=== PATIENT | female | born 1980 | race Caucasian/White ===

== ENCOUNTER 2020-09-13 16:40 | Emergency (ER) | payer BC ==
[2020-09-13 16:52] VITALS: RESP 18
[2020-09-13] MEDS ORDERED: SODIUM CHLORIDE 0.9% 1,000 ML IV STA (17:19)
[2020-09-13 17:28] LABS: Basophils # (A) 0.1 k/uL (0-0.2); Basophils % (A) 1 %; Eosinophils # (A) 0.1 k/uL (0-0.7); Eosinophils % (A) 2 %; HCT 45.3 % (34.0-46.0); HGB 15.6 gm/dL (11.4-16.0); Lymphocytes # (A) 1.8 k/uL (1.0-4.8); Lymphocytes % (A) 19 %; MCH 33.9 pg (25.0-35.0); MCHC 34.4 g/dL (31.0-37.0); MCV 98.3 fL (80.0-100.0); Mean Platelet Volume 6.9; Monocytes # (A) 0.6 k/uL (0-1.0); Monocytes % (A) 6 %; Neutrophils # (A) 6.8 k/uL (1.3-7.7); Neutrophils % (A) 72 %; Platelet Count 223 k/uL (150-450); RBC 4.61 m/uL (3.80-5.40); RDW 12.3 % (11.5-15.5); WBC 9.6 k/uL (3.8-10.6)
[2020-09-13] MEDS ORDERED: KETOROLAC 15 MG/ML 1 ML VIAL ONE (17:29)
[2020-09-13] MEDS ORDERED: KETOROLAC 15 MG/ML 1 ML VIAL IVP STA (17:29)
[2020-09-13 17:38] LABS: ALT 42 U/L (4-34); AST 48 U/L (14-36); African American GFR (CKD) >90 (>60 ml/min/1.73 sqM); Albumin 4.4 g/dL (3.5-5.0); Alkaline Phosphatase 83 U/L (38-126); Anion Gap 8 mmol/L; Blood Urea Nitrogen 12 mg/dL (7-17); Calcium 9.5 mg/dL (8.4-10.2); Carbon Dioxide 23 mmol/L (22-30); Chloride 106 mmol/L (98-107); Glucose 100 mg/dL (74-99); Magnesium 1.9 mg/dL (1.6-2.3); Non-African American GFR(CKD) >90 (>60 ml/min/1.73 sqM); Potassium 4.1 mmol/L (3.5-5.1); Sodium 137 mmol/L (137-145); Total Bilirubin 0.5 mg/dL (0.2-1.3); Total Protein 7.1 g/dL (6.3-8.2)
[2020-09-13 17:52] LABS: D-Dimer 0.2 mg/L FEU (<0.60); Partial Thromboplastin Time 27.2 sec (22.0-30.0); Prothrombin Time 10.3 sec (9.0-12.0)
--- NOTE | 2020-09-13 18:15 | XR ---
EXAMINATION TYPE: XR chest 2V DATE OF EXAM: 09/13/2020 COMPARISON: NONE HISTORY: Chest pain TECHNIQUE: 2 views FINDINGS: Heart is normal. Lungs are clear of consolidation. There are no hilar masses. There is no p leural effusion. There are chest leads. There is slight coarsening of interstitial markings. IMPRESSION: Mild pulmonary increased interstitial density. No pulmonary consolidation or heart failur e.
[2020-09-13] MEDS ORDERED: CYCLOBENZAPRINE 10MG STARTER 3 TAB BTL PO STA (18:34)
--- NOTE | 2020-09-13 18:55 | ED ---
Chest Pain HPI - General Chief Complaint: Chest Pain Stated Complaint: Chest pain Source: patient Mode of arrival: wheelchair Limitations: no limitations - History of Present Illness Initial Comments: Patient is a 40-year-old female has no history of fibromyalgia who presents to the emergency department with reported left-sided chest wall pain. 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 Left that she had a pulled muscle. States that she's been putting ice the site been taking anti-inflammatories at home. Reports that the pain has become more severe. She was attempting work yesterday when the pain was too intense. Reports that it is worse when she moves her left upper extremity and sits forward. Pain is better at rest. Denies any associated shortness of breath. No nausea, vomiting. No ripping or tearing sensation to her back. Patient is adopted and therefore does not know any of her family hi story. She denies history of DVT or PE. No lower extremity swelling. Denies any fevers or chills. No cough. No other alleviating, precipitating or modifying factors - Related Data Home Medications Medication Instructions Recorded Confirmed Acetaminophen [Tylenol] 1,000 mg PO Q4-6H PRN 09/13/20 09/13/20 Dextroamphetamine/Amphetamine 15 mg PO DAILY 09/13/20 09/13/20 [Dextroamp-Amphetamin 30 mg Tab] Ibuprofen [Motrin Ib] 600 mg PO Q8H PRN 09/13/20 09/13/20 Previous Rx's Medication Instructions Recorded Ketorolac [Toradol] 10 mg PO Q8HR #15 tab 09/13/20 Allergies Allergy/AdvReac Type Severity Reaction Status Date / Time adhesive Allergy Rash/Hives Verified 09/13/20 17:49 clarithromycin [From Biaxin] Allergy Rash/Hives Verified 09/13/20 17:49 latex Allergy Rash/Hives Verified 09/13/20 17:49 morphine Allergy Itching Verified 09/13/20 17:49 codeine AdvReac Vomiting Verified 09/13/20 17:49 fentanyl AdvReac Nausea & Verified 09/13/20 17:49 Vomiting hydromorphone HCl AdvReac Vomiting Verified 09/13/20 17:49 [From Dilaudid] Review of Systems ROS Statement: Those systems with pertinent positive or pertinent negative responses have been documented in the HPI. ROS Other: All systems not noted in ROS Statement are negative. EKG Findings - EKG Comments: EKG Findings:: EKG demonstrates a normal sinus rhythm with a ventricular rate of 100. HI interval is 180. QRS 88. QTC of 459. No acute ST segment elevations or depressions. Past Medical History Past Medical History: Fibromyalgia Additional Past Medical History / Comment(s): Anemia History of Any Multi-Drug Resistant Organisms: None Reported Additional Past Surgical History / Comment(s): tubal Past Psychological History: No Psychological Hx Reported Smoking Status: Current every day smoker Past Alcohol Use History: Occasional Past Drug Use History: None Reported General Exam Limitations: no limitations Course Vital Signs 09/13/20 09/13/20 09/13/20 16:45 18:10 19:09 Temperature 98.9 F 98.4 F Pulse Rate 108 H 87 80 Respiratory 18 18 18 Rate Blood Pressure 174/106 159/98 145/88 O2 Sat by Pulse 100 99 98 Oximetry Chest Pain MDM - [facility] Upon arrival patient is placed in room 9. A thorough history and physical exam was performed. 12 lead EKG was performed. IV is established. Laboratory studies were conducted and the patient went for chest x-ray. Her d-dimer is negative. Troponin is negative. Chest x-ray demonstrates mild pulmonary increased interstitial density. Results are discussed with the patient. She was given a dose of Toradol for which she states her pain is markedly improved. Patient will be given a 5 day course of Toradol. Instructed not to take it with any other NSAIDs. She is also requesting a muscle relaxer. Patient was given a Flexeril starter pack to go home. The place warm compresses to the site. Follow-up with primary care doctor in 2-4 days. Return to the emergency room for any new or worsening symptoms. Patient was in agreement with this and was discharged home in stable condition Disposition Clinical Impression: Chest wall pain Disposition: HOME SELF-CARE Condition: Stable Instructions (If sedation given, give patient instructions): Chest Wall Pain (ED) Additional Instructions: Follow-up with your doctor in 2-[address] warm compresses to the site. Do not take any additional NSAIDs. Return to the emergency room for any new or worsening symptoms Prescriptions: Ketorolac [Toradol] 10 mg PO Q8HR #15 tab Is patient prescribed a controlled substance at d/c from ED?: No Referrals: Shahzad Buitrago MD [Primary Care Provider] - 1-2 days Time of Disposition: 18:55
[2020-09-13 19:10] VITALS: BP 145/88; PULSE 80; TEMP 98.4
== END 2020-09-13 19:10 | disposition home or self-care (01) ==
LOC: EC 16:40
DX: R07.89 Other chest pain (principal); F17.200 Nicotine dependence, unspecified, uncomplicated; Z79.899 Other long term (current) drug therapy; Z91.048 Other nonmedicinal substance allergy status; Z88.1 Allergy status to other antibiotic agents; Z91.040 Latex allergy status; Z88.5 Allergy status to narcotic agent; Z88.8 Allergy status to other drugs, medicaments and biological substances
CPT/HCPCS: 36415; 93005; 85379; 80053; 83735; 84484; 85025; 85610; 85730; 71046; 99285; 96374; 96361; J1885

== ENCOUNTER 2023-05-15 09:47 | Inpatient (IN) | payer BC, OTHER ==
[2023-05-15] MEDS ORDERED: TRANEXAMIC 1,000 MG/100ML-NACL 1,000 MG in SALINE 1 100ML.BAG IV STA (09:51)
[2023-05-15] MEDS ORDERED: SODIUM CHLORIDE 0.9% 1,000 ML IV STA (09:51)
[2023-05-15] MEDS ORDERED: DIPH,PERTUS(ACELL)TETVAC-LF 0.5 ML VIAL IM ONE (09:52)
[2023-05-15] MEDS ORDERED: LORazepam 2 MG/ML INJ IV STA (09:56)
[2023-05-15 10:17] LABS: Basophils % (A) 0 %; Eosinophils # (A) 0.1 k/uL (0-0.7); Eosinophils % (A) 1 %; HCT 34.5 % (34.0-46.0); HGB 12.3 gm/dL (11.4-16.0); Lymphocytes # (A) 0.4 k/uL (1.0-4.8); Lymphocytes % (A) 5 %; MCH 33.3 pg (25.0-35.0); MCHC 35.6 g/dL (31.0-37.0); MCV 93.6 fL (80.0-100.0); Mean Platelet Volume 8.1; Monocytes # (A) 0.1 k/uL (0-1.0); Monocytes % (A) 1 %; Neutrophils # (A) 7.6 k/uL (1.3-7.7); Neutrophils % (A) 92 %; Platelet Count 159 k/uL (150-450); RBC 3.69 m/uL (3.80-5.40); RDW 12.5 % (11.5-15.5); WBC 8.2 k/uL (3.8-10.6)
[2023-05-15 10:24] LABS: INR 2.1 (<1.2); Partial Thromboplastin Time 27.2 sec (22.0-30.0); Prothrombin Time 20.2 sec (9.0-12.0)
[2023-05-15 10:29] LABS: African American GFR (CKD) >90 (>60 ml/min/1.73 sqM); Albumin 3.5 g/dL (3.5-5.0); Alcohol <10 mg/dL; Alkaline Phosphatase 101 U/L (38-126); Anion Gap 13 mmol/L; Blood Urea Nitrogen 9 mg/dL (7-17); Calcium 7.9 mg/dL (8.4-10.2); Carbon Dioxide 17 mmol/L (22-30); Chloride 90 mmol/L (98-107); Glucose 108 mg/dL (74-99); Non-African American GFR(CKD) >90 (>60 ml/min/1.73 sqM); Sodium 120 mmol/L (137-145); Total Bilirubin 5.3 mg/dL (0.2-1.3); Total Protein 5.6 g/dL (6.3-8.2)
[2023-05-15] MEDS ORDERED: ONDANSETRON 4 MG/2 ML VIAL IVP STA (10:37)
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
[2023-05-15 10:56] LABS: ALT 4426 U/L (4-34); AST 6195 U/L (14-36)
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
[2023-05-15] MEDS ORDERED: SODIUM CHLORIDE 0.9% 1,000 ML IV ONE ×3 (11:41→15:43)
--- NOTE | 2023-05-15 12:15 | P.PN ---
Progress Note - Text Progress Note Date: 05/15/23 Additional diagnostic studies completed. CTA negative for carotid injury or venous injury. Delay in surgical intervention as patient initially refused surgery. After further discussion, patient gave consent to proceed with surgery. Benefits and risks of neck exploration described. Likely injury is soft tissue/muscular. We'll control bleeding. Patient agreed to proceed.
[2023-05-15] MEDS ORDERED: DEXAMETHASONE SOD PHOSPHATE 4 MG/ML 1 ML VIAL IV ONE (12:21)
[2023-05-15] MEDS ORDERED: MIDAZOLAM 2 MG/2 ML VIAL ONE (12:36)
[2023-05-15] MEDS ORDERED: PROPOFOL 10 MG/ML 20 ML VIAL IV ONE (12:36)
[2023-05-15] MEDS ORDERED: KETOROLAC 30 MG/ML 1 ML VIAL ONE (12:36)
[2023-05-15] MEDS ORDERED: SUCCINYLCHOLINE CHLORIDE 200 MG/10 ML VIAL IV ONE (12:36)
[2023-05-15] MEDS ORDERED: PHENYLEPHRINE-0.9% NACL SYG 1,000 MCG/10 ML SYRINGE ONE (12:36)
[2023-05-15] MEDS ORDERED: SODIUM CHLORIDE 0.9% 50 ML with ceFAZolin 2,000 MG IV ONE ×2 (12:41)
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
[2023-05-15] MEDS ORDERED: BACITRACIN OINT 1 EACH PACKET TOPICAL ONE (13:35)
[2023-05-15] MEDS ORDERED: SODIUM CHLORIDE 0.9% 2,000 ML IV ONE ×2 (14:51→14:56)
[2023-05-15] MEDS ORDERED: NALOXONE 0.4 MG/ML 1 ML VIAL IV PRN (14:54)
[2023-05-15] MEDS ORDERED: HYDROmorphone 1 MG/ML 1 ML SYRINGE IVP PRN (14:55)
[2023-05-15] MEDS: SODIUM CHLORIDE 0.9% 1,000 ML IV SCH ×2 (16:02→21:50)
[2023-05-15 18:22] LABS: Amphetamine Screen,Urine Not Detected (NotDetected); Barbiturate Screen,Urine Not Detected (NotDetected); Benzodiazepines Screen,Urine Not Detected (NotDetected); Cocaine Screen,Urine Not Detected (NotDetected); Methadone Screen, Urine Not Detected (NotDetected); Opiate Screen,Urine Not Detected (NotDetected); Oxycodone Screen, Urine Not Detected (NotDetected); Phencyclidine Screen,Urine Not Detected (NotDetected); Tricyclic Antidepressant,Urine Not Detected (NotDetected); Urn Cannabinoid Scrn Not Detected (NotDetected)
[2023-05-15 18:29] LABS: Acetaminophen 22.4 ug/mL; Salicylate <1.0 mg/dL
--- NOTE | 2023-05-15 19:13 | P.PN ---
Progress Note - Text Progress Note Date: 05/15/23 Was called for evaluation and medical consult of patient. Reviewed chart and placed orders as patient appears to be an acute liver failure of unclear etiology. Upon going to bedside was notified that we will no longer be consulted for medical management of this patient as patient's primary doctor is Dr. Buitrago who will assume care of patient and complete medical consult. Will leave orders that I placed an process as these will benefit patient and discontinuation may cause further delay of patient's medical care. Further patient care and orders to be provided by Dr. Catalina Hammond, KURT rendered care for this patient independently, reviewed the findings and plan as documented in the note above. I did not physically speak with or examine the patient on this date.
[2023-05-15] MEDS: NICOTINE 21MG/24HR PATCH TRANSDERM SCH (21:49)
[2023-05-15 23:44] LABS: Albumin 2.6 g/dL (3.5-5.0); Albumin/Globulin Ratio 1.4; Globulin 1.9 g/dL; Total Bilirubin 4.2 mg/dL (0.2-1.3); Total Protein 4.5 g/dL (6.3-8.2)
[2023-05-15] MEDS: ALPRAZolam 0.5 MG TAB PO PRN (23:56)
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
[2023-05-16] MEDS: SODIUM CHLORIDE 0.9% 1,000 ML IV SCH ×3 (07:42→18:08)
[2023-05-16] MEDS: ENOXAPARIN 30 MG/0.3 ML SYRINGE SQ SCH (08:26)
[2023-05-16] MEDS: NICOTINE 21MG/24HR PATCH TRANSDERM SCH (08:27)
[2023-05-16] MEDS: MONTELUKAST 10 MG TAB PO SCH (08:27)
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
[2023-05-16] MEDS: SYMBICORT 160-4.5 MCG INHALER INHALATION SCH ×2 (08:28→20:00)
[2023-05-16 08:35] LABS: Hepatitis A Antibody IgM Non-Reactive (Non-Reactive); Hepatitis B Core IgM Non-Reactive (Non-Reactive); Hepatitis B Surface Antigen Non-Reactive (Non-Reactive); Hepatitis C IgG Antibody Non-Reactive (Non-Reactive)
[2023-05-16] MEDS ORDERED: diphenhydrAMINE 25 MG CAP PO PRN (09:23)
[2023-05-16 10:13] LABS: Basophils % (A) 0 %; Eosinophils % (A) 0 %; HCT 28.1 % (34.0-46.0); Lymphocytes # (A) 0.3 k/uL (1.0-4.8); Lymphocytes % (A) 3 %; MCH 33.9 pg (25.0-35.0); MCHC 35.3 g/dL (31.0-37.0); MCV 95.8 fL (80.0-100.0); Mean Platelet Volume 8.2; Monocytes # (A) 0.1 k/uL (0-1.0); Monocytes % (A) 2 %; Neutrophils # (A) 8.9 k/uL (1.3-7.7); Neutrophils % (A) 95 %; Platelet Count 168 k/uL (150-450); RBC 2.94 m/uL (3.80-5.40); RDW 12.8 % (11.5-15.5); WBC 9.4 k/uL (3.8-10.6)
[2023-05-16 10:14] LABS: African American GFR (CKD) >90 (>60 ml/min/1.73 sqM); Albumin 2.6 g/dL (3.5-5.0); Albumin/Globulin Ratio 1.2; Alkaline Phosphatase 119 U/L (38-126); Anion Gap 5 mmol/L; Blood Urea Nitrogen <2 mg/dL (7-17); Calcium 7.8 mg/dL (8.4-10.2); Carbon Dioxide 20 mmol/L (22-30); Chloride 107 mmol/L (98-107); Globulin 2.2 g/dL; Glucose 157 mg/dL (74-99); Non-African American GFR(CKD) >90 (>60 ml/min/1.73 sqM); Potassium 3.9 mmol/L (3.5-5.1); Sodium 132 mmol/L (137-145); Total Bilirubin 3.5 mg/dL (0.2-1.3); Total Protein 4.8 g/dL (6.3-8.2)
[2023-05-16 10:15] LABS: HGB 9.9 gm/dL (11.4-16.0)
[2023-05-16 10:53] LABS: ALT 4558 U/L (4-34); AST 5294 U/L (14-36)
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
[2023-05-16] MEDS ORDERED: ACETYLCYSTEINE 6,000 MG/30 ML VIAL PO ONE (15:00)
[2023-05-16] MEDS: BACITRACIN ZINC 500 UNIT/GM OINT 28.4 GM TUBE TOPICAL SCH ×2 (15:34→22:08)
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
[2023-05-16 15:47] LABS: INR 1.6 (<1.2); Prothrombin Time 15.9 sec (9.0-12.0)
[2023-05-16] MEDS: ACETYLCYSTEINE 6,000 MG/30 ML VIAL PO SCH ×2 (18:09→22:08)
[2023-05-17] MEDS: SODIUM CHLORIDE 0.9% 1,000 ML IV SCH ×4 (00:03→21:38)
[2023-05-17] MEDS: ALPRAZolam 0.5 MG TAB PO PRN ×2 (00:04→21:38)
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
[2023-05-17] MEDS: ACETYLCYSTEINE 6,000 MG/30 ML VIAL PO SCH ×5 (02:25→18:06)
--- NOTE | 2023-05-17 06:35 | P.PN ---
Subjective Progress Note Date: 05/15/23 Additional history obtained with food poisoning for 4 days not eating. Had moderate jaundice now improving. Patient reports overdosing on tylenol taking more than recommended amount due to food poisoning. Continued hospitalization for liver toxicity, IV fluid hydration advised. Neck dressing attached with tegaderm. Objective - Vital Signs Vital signs: Vital Signs Temp 98.3 F 05/15/23 19:28 Pulse 110 H 05/15/23 19:28 Resp 19 05/15/23 19:28 BP 122/79 05/15/23 19:28 Pulse Ox 100 05/15/23 19:28 FiO2 Intake & Output 05/15/23 05/15/23 05/16/23 06:59 18:59 06:59 Intake Total 6397 Output Total 10 Balance 6387 Weight 68.039 kg Intake: IV 2100 Intake, IV Titration 4297 Amount Sodium Chloride 0.9% 1, 1200 000 ml @ 150 mls/hr IV . Q6H40M [facility] Rx#:[id number] Sodium Chloride 0.9% 1, 999 000 ml @ 999 mls/hr IV . Q1H1M STA Rx#:[id number] Sodium Chloride 0.9% 2, 999 000 ml @ 999 mls/hr IV . Q2H1M ONE Rx#:[id number] Sodium Chloride 0.9% 2, 999 000 ml @ 999 mls/hr IV . Q2H1M ONE Rx#:[id number] Sodium Chloride 0.9% 50 50 ml @ 0 mls/hr IV .STK-MED ONE with ceFAZolin 2,000 mg Rx#:[id number] ceFAZolin 2 gm In Sodium 50 Chloride 0.9% 50 ml @ 100 mls/hr IVPB ONCE ONE Rx# :[id number] Output: Estimated Blood Loss 10 Other: Voiding Method Toilet - Labs CBC & Chem 7: 05/15/23 10:06 05/15/23 10:06 Labs: Abnormal Lab Results - Last 24 Hours (Table) 05/15/23 05/15/23 05/15/23 Range/Units 10:06 10:06 10:06 RBC 3.69 L (3.80-5.40) m/uL Lymphocytes # 0.4 L (1.0-4.8) k/uL PT 20.2 H (9.0-12.0) sec INR 2.1 H (<1.2) Sodium (137-145) mmol/L Chloride (98-107) mmol/L Carbon Dioxide (22-30) mmol/L Glucose (74-99) mg/dL Calcium (8.4-10.2) mg/dL Total Bilirubin (0.2-1.3) mg/dL AST (14-36) U/L ALT (4-34) U/L Creatine Kinase (30-135) U/L Total Protein (6.3-8.2) g/dL Crossmatch See Detail 05/15/23 05/15/23 Range/Units 10:06 11:00 RBC (3.80-5.40) m/uL Lymphocytes # (1.0-4.8) k/uL PT (9.0-12.0) sec INR (<1.2) Sodium 120 L (137-145) mmol/L Chloride 90 L (98-107) mmol/L Carbon Dioxide 17 L (22-30) mmol/L Glucose 108 H (74-99) mg/dL Calcium 7.9 L (8.4-10.2) mg/dL Total Bilirubin 5.3 H (0.2-1.3) mg/dL AST 6195 H (14-36) U/L ALT 4426 H (4-34) U/L Creatine Kinase 275 H (30-135) U/L Total Protein 5.6 L (6.3-8.2) g/dL Crossmatch
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
[2023-05-17] MEDS: MONTELUKAST 10 MG TAB PO SCH (08:29)
[2023-05-17] MEDS: NICOTINE 21MG/24HR PATCH TRANSDERM SCH (08:29)
[2023-05-17] MEDS: BACITRACIN ZINC 500 UNIT/GM OINT 28.4 GM TUBE TOPICAL SCH ×2 (08:29→21:38)
[2023-05-17] MEDS: ENOXAPARIN 30 MG/0.3 ML SYRINGE SQ SCH (08:29)
[2023-05-17 09:00] LABS: HCT 25.2 % (34.0-46.0); HGB 8.9 gm/dL (11.4-16.0); MCH 34.1 pg (25.0-35.0); MCHC 35.3 g/dL (31.0-37.0); MCV 96.5 fL (80.0-100.0); Mean Platelet Volume 7.9; Platelet Count 210 k/uL (150-450); RBC 2.61 m/uL (3.80-5.40)
[2023-05-17] MEDS: SYMBICORT 160-4.5 MCG INHALER INHALATION SCH ×2 (09:25→21:05)
[2023-05-17 09:26] LABS: African American GFR (CKD) >90 (>60 ml/min/1.73 sqM); Albumin 2.8 g/dL (3.5-5.0); Albumin/Globulin Ratio 1.3; Alkaline Phosphatase 117 U/L (38-126); Anion Gap 9 mmol/L; Blood Urea Nitrogen <2 mg/dL (7-17); Calcium 7.7 mg/dL (8.4-10.2); Carbon Dioxide 16 mmol/L (22-30); Chloride 109 mmol/L (98-107); Globulin 2.1 g/dL; Glucose 152 mg/dL (74-99); Non-African American GFR(CKD) >90 (>60 ml/min/1.73 sqM); Potassium 3.5 mmol/L (3.5-5.1); Sodium 134 mmol/L (137-145); Total Bilirubin 2.9 mg/dL (0.2-1.3); Total Protein 4.9 g/dL (6.3-8.2)
[2023-05-17 09:56] LABS: AST 1344 U/L (14-36)
[2023-05-17 11:04] LABS: ALT 2862 U/L (4-34)
[2023-05-17] MEDS ORDERED: hydrOXYzine pamoate 25 MG CAP PO PRN (13:50)
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
[2023-05-17 15:09] LABS: Acetaminophen <10.0 ug/mL; African American GFR (CKD) >90 (>60 ml/min/1.73 sqM); Albumin/Globulin Ratio 1.3; Blood Urea Nitrogen <2 mg/dL (7-17); Globulin 2.3 g/dL; Non-African American GFR(CKD) >90 (>60 ml/min/1.73 sqM); Sodium 137 mmol/L (137-145); Total Protein 5.3 g/dL (6.3-8.2)
[2023-05-17 15:13] LABS: INR 1.3 (<1.2); Prothrombin Time 13.3 sec (9.0-12.0)
--- NOTE | 2023-05-17 15:31 | P.PN ---
Subjective Progress Note Date: 05/17/23 CHIEF COMPLAINT: Neck laceration HISTORY OF PRESENT ILLNESS: Patient is postop day #2 status post closure of anterior neck laceration 8 cm, closure of right neck laceration 5 cm, closure of right forearm medial laceration 10 cm, repair of right wrist laceration and repair of left lateral forearm laceration. Patient reports her pain is controlled. She does note there is a slight opening in the incision at the neck. No drainage. Pain is controlled. Afebrile. WBC is 6 Hgb is 8.9 INR is 1.3 total bilirubin is down from 3.5-2.9 LFTs are trending down Tylenol level is less than 10 PHYSICAL EXAM: VITAL SIGNS: Reviewed GENERAL: Well-developed in no acute distress. HEENT: sclera icterus noted. Extraocular movements grossly intact. Moist buccal mucosa. Head is facial bruising. normocephalic. Hears conversational speech. No nasal drainage. NECK: Neck incisions clean dry and intact. The anterior incision there is a slight opening. No drainage noted. CHEST: Non-labored respirations and equal bilateral excursions. CARDIOVASCULAR: Palpable 2+ radial pulses. ABDOMEN: Soft. Nondistended. Nontender. MUSCULOSKELETAL: No clubbing or cyanosis. NEUROLOGIC: No focal or lateralizing signs. Cranial nerves II through XII grossly intact. PSYCH: Appropriate affect. Alert and oriented to person, place and time. SKIN: Multiple areas of bruising face and arms Extremities lacerations on both extremities are clean dry and intact ASSESSMENT: 1. Hemorrhagic right neck laceration, 5-cm 2. Anterior neck laceration, 8-cm 3. Right lateral forearm laceration, multiple 4. Left medial forearm laceration, subcutaneous multiple 5. Left anterior and posterior lacerations 6. Left wrist laceration, 6-cm, subfascia 7. Elevated liver enzymes possibly related to acetaminophen overdose and shocked liver 8. Acute blood loss anemia PLAN: -Clean incisions with antibacterial soap and hydrogen peroxide twice a day. Then apply bacitracin ointment and cover -Okay to shower -Continue monitor LFTs -Continue pain management -Medicine service did add Mucomyst of acetaminophen overdose. Poison control has been notified. -Continue IV fluids -Lovenox DVT prophylaxis Physician Payroll Representative note has been reviewed by physician. Signing provider agrees with the documented findings, assessment, and plan of care. Objective - Vital Signs Vital signs: Vital Signs Temp 97.9 F 05/17/23 07:05 Pulse 89 05/17/23 07:05 Resp 16 05/17/23 07:05 BP 128/68 05/17/23 07:05 Pulse Ox 97 05/17/23 07:05 FiO2 Intake & Output 05/16/23 05/17/23 05/17/23 18:59 06:59 18:59 Intake Total 1200 Output Total 200 Balance 1000 Intake: Intake, IV Titration 1200 Amount Sodium Chloride 0.9% 1, 1200 000 ml @ 150 mls/hr IV . Q6H40M [facility] Rx#:[id number] Output: Urine 200 Other: # Voids 3 # Bowel Movements 2 - Labs CBC & Chem 7: 05/17/23 08:36 05/17/23 08:36 Labs: Abnormal Lab Results - Last 24 Hours (Table) 05/16/23 05/17/23 05/17/23 Range/Units 15:18 08:36 08:36 RBC 2.61 L (3.80-5.40) m/uL Hgb 8.9 L (11.4-16.0) gm/dL Hct 25.2 L (34.0-46.0) % PT 15.9 H (9.0-12.0) sec INR 1.6 H (<1.2) Sodium 134 L (137-145) mmol/L Chloride 109 H (98-107) mmol/L Carbon Dioxide 16 L (22-30) mmol/L BUN <2 L (7-17) mg/dL Creatinine 0.39 L (0.52-1.04) mg/dL Glucose 152 H (74-99) mg/dL Calcium 7.7 L (8.4-10.2) mg/dL Total Bilirubin 2.9 H (0.2-1.3) mg/dL AST 1344 H (14-36) U/L ALT 2862 H (4-34) U/L Total Protein 4.9 L (6.3-8.2) g/dL Albumin 2.8 L (3.5-5.0) g/dL
[2023-05-17 15:46] LABS: Alkaline Phosphatase 159 U/L (38-126); Anion Gap 11 mmol/L; Calcium 8.1 mg/dL (8.4-10.2); Carbon Dioxide 16 mmol/L (22-30); Chloride 110 mmol/L (98-107); Glucose 163 mg/dL (74-99); Total Bilirubin 2.7 mg/dL (0.2-1.3)
[2023-05-17 15:58] LABS: AST 1053 U/L (14-36)
[2023-05-17 17:37] LABS: ALT 2658 U/L (4-34)
[2023-05-17] MEDS ORDERED: LOPERAMIDE 2 MG CAP PO PRN (20:27)
[2023-05-17] MEDS: traZODone HCL 50 MG TAB PO SCH (21:38)
[2023-05-17] MEDS: SODIUM BICARBONATE TAB 650 MG TAB PO SCH (21:38)
[2023-05-18] MEDS: SODIUM CHLORIDE 0.9% 1,000 ML IV SCH ×4 (03:29→23:19)
[2023-05-18 08:26] LABS: Basophils % (A) 0 %; Eosinophils # (A) 0.2 k/uL (0-0.7); Eosinophils % (A) 4 %; HCT 24.9 % (34.0-46.0); HGB 8.5 gm/dL (11.4-16.0); Lymphocytes # (A) 1.3 k/uL (1.0-4.8); Lymphocytes % (A) 24 %; MCH 33.3 pg (25.0-35.0); MCHC 34.2 g/dL (31.0-37.0); MCV 97.5 fL (80.0-100.0); Mean Platelet Volume 8.2; Monocytes # (A) 0.3 k/uL (0-1.0); Monocytes % (A) 7 %; Neutrophils # (A) 3.3 k/uL (1.3-7.7); Neutrophils % (A) 63 %; Platelet Count 245 k/uL (150-450); RBC 2.55 m/uL (3.80-5.40); RDW 13.4 % (11.5-15.5); WBC 5.2 k/uL (3.8-10.6)
[2023-05-18] MEDS: ENOXAPARIN 30 MG/0.3 ML SYRINGE SQ SCH (08:35)
[2023-05-18] MEDS: MONTELUKAST 10 MG TAB PO SCH (08:35)
[2023-05-18] MEDS: NICOTINE 21MG/24HR PATCH TRANSDERM SCH (08:35)
[2023-05-18] MEDS: SODIUM BICARBONATE TAB 650 MG TAB PO SCH ×2 (08:35→21:15)
[2023-05-18] MEDS: BACITRACIN ZINC 500 UNIT/GM OINT 28.4 GM TUBE TOPICAL SCH ×2 (08:39→21:17)
[2023-05-18 08:45] LABS: AST 474 U/L (14-36); African American GFR (CKD) >90 (>60 ml/min/1.73 sqM); Albumin 2.5 g/dL (3.5-5.0); Albumin/Globulin Ratio 1.2; Alkaline Phosphatase 159 U/L (38-126); Anion Gap 7 mmol/L; Blood Urea Nitrogen <2 mg/dL (7-17); Calcium 7.5 mg/dL (8.4-10.2); Carbon Dioxide 18 mmol/L (22-30); Chloride 112 mmol/L (98-107); Globulin 2.1 g/dL; Glucose 68 mg/dL (74-99); Non-African American GFR(CKD) >90 (>60 ml/min/1.73 sqM); Potassium 3.6 mmol/L (3.5-5.1); Sodium 137 mmol/L (137-145); Total Bilirubin 1.6 mg/dL (0.2-1.3); Total Protein 4.6 g/dL (6.3-8.2)
[2023-05-18 09:07] LABS: ALT 1770 U/L (4-34)
[2023-05-18] MEDS: SYMBICORT 160-4.5 MCG INHALER INHALATION SCH ×2 (09:53→20:51)
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
[2023-05-18] MEDS: traZODone HCL 50 MG TAB PO SCH (21:15)
[2023-05-18] MEDS: ALPRAZolam 0.5 MG TAB PO PRN (21:15)
[2023-05-19] MEDS: SODIUM CHLORIDE 0.9% 1,000 ML IV SCH ×3 (05:55→17:05)
[2023-05-19 07:03] LABS: Basophils % (A) 0 %; Eosinophils # (A) 0.4 k/uL (0-0.7); Eosinophils % (A) 5 %; HCT 28.7 % (34.0-46.0); HGB 9.8 gm/dL (11.4-16.0); Lymphocytes # (A) 2.1 k/uL (1.0-4.8); Lymphocytes % (A) 28 %; MCH 33.8 pg (25.0-35.0); MCHC 34.1 g/dL (31.0-37.0); MCV 98.9 fL (80.0-100.0); Macrocytosis Slight; Mean Platelet Volume 7.3; Monocytes # (A) 0.5 k/uL (0-1.0); Monocytes % (A) 7 %; Neutrophils # (A) 4.6 k/uL (1.3-7.7); Neutrophils % (A) 59 %; Platelet Count 304 k/uL (150-450); RBC 2.91 m/uL (3.80-5.40); RDW 14.8 % (11.5-15.5); WBC 7.8 k/uL (3.8-10.6)
[2023-05-19 07:17] LABS: AST 256 U/L (14-36); African American GFR (CKD) >90 (>60 ml/min/1.73 sqM); Albumin 3.2 g/dL (3.5-5.0); Albumin/Globulin Ratio 1.3; Alkaline Phosphatase 185 U/L (38-126); Anion Gap 5 mmol/L; Blood Urea Nitrogen <2 mg/dL (7-17); Calcium 7.9 mg/dL (8.4-10.2); Carbon Dioxide 23 mmol/L (22-30); Chloride 110 mmol/L (98-107); Globulin 2.4 g/dL; Glucose 82 mg/dL (74-99); Non-African American GFR(CKD) >90 (>60 ml/min/1.73 sqM); Potassium 3.5 mmol/L (3.5-5.1); Sodium 138 mmol/L (137-145); Total Bilirubin 1.6 mg/dL (0.2-1.3); Total Protein 5.6 g/dL (6.3-8.2)
[2023-05-19 07:34] LABS: ALT 1491 U/L (4-34)
[2023-05-19] MEDS: SODIUM BICARBONATE TAB 650 MG TAB PO SCH ×2 (07:48→21:19)
[2023-05-19] MEDS: MONTELUKAST 10 MG TAB PO SCH (07:48)
[2023-05-19] MEDS: ENOXAPARIN 30 MG/0.3 ML SYRINGE SQ SCH (07:49)
[2023-05-19] MEDS: BACITRACIN ZINC 500 UNIT/GM OINT 28.4 GM TUBE TOPICAL SCH ×2 (07:49→21:21)
[2023-05-19] MEDS: NICOTINE 21MG/24HR PATCH TRANSDERM SCH (07:49)
[2023-05-19] MEDS: SYMBICORT 160-4.5 MCG INHALER INHALATION SCH ×2 (09:21→20:28)
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
[2023-05-19] MEDS ORDERED: hydrALAZINE HCL 20 MG/ML 1 ML VIAL IVP PRN (13:07)
[2023-05-19] MEDS: LOSARTAN-HCTZ 50-12.5 MG 1 EACH TAB PO SCH (14:12)
[2023-05-19] MEDS: ESCITALOPRAM 20 MG TAB PO SCH (17:04)
[2023-05-19] MEDS: ALPRAZolam 0.5 MG TAB PO PRN (21:19)
[2023-05-19] MEDS: traZODone HCL 50 MG TAB PO SCH (21:21)
[2023-05-20] MEDS: SODIUM CHLORIDE 0.9% 1,000 ML IV SCH ×3 (04:36→11:09)
[2023-05-20] MEDS: ESCITALOPRAM 20 MG TAB PO SCH (07:49)
[2023-05-20] MEDS: SODIUM BICARBONATE TAB 650 MG TAB PO SCH (07:50)
[2023-05-20] MEDS: NICOTINE 21MG/24HR PATCH TRANSDERM SCH (07:50)
[2023-05-20] MEDS: LOSARTAN-HCTZ 50-12.5 MG 1 EACH TAB PO SCH (07:50)
[2023-05-20] MEDS: MONTELUKAST 10 MG TAB PO SCH (07:50)
[2023-05-20] MEDS: ENOXAPARIN 30 MG/0.3 ML SYRINGE SQ SCH (07:50)
[2023-05-20] MEDS: BACITRACIN ZINC 500 UNIT/GM OINT 28.4 GM TUBE TOPICAL SCH (07:54)
[2023-05-20] MEDS: SYMBICORT 160-4.5 MCG INHALER INHALATION SCH (08:13)
[2023-05-20 11:25] LABS: ALT 1055 U/L (8-44); AST 109 U/L (13-35); Albumin 3.6 d/dL (3.8-4.9); Albumin/Globulin Ratio 2.12 Ratio (1.60-3.17); Alkaline Phosphatase 195 U/L (41-126); Blood Urea Nitrogen 5.6 mg/dL (9.0-27.0); Calcium 8.8 mg/dL (8.7-10.3); Carbon Dioxide 23.9 mmol/L (21.6-31.8); Chloride 105 mmol/L (96-109); Globulin 1.7 d/dL (1.6-3.3); Glucose 75 mg/dL (70-110); Sodium 139 mmol/L (135-145); Total Bilirubin 1.3 mg/dL (0.3-1.2); Total Protein 5.3 d/dL (6.2-8.2)
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
[2023-05-20 14:49] VITALS: BP 137/88; PULSE 86; RESP 17; TEMP 98.5
--- NOTE | 2023-05-22 15:27 | PN ---
PROGRESS NOTE SUBJECTIVE: This is a 43-year-old white female, getting better by the day. She is not suicidal. Pulse is 96, temp 98.7, blood pressure 121/74, O2 95% on room air. Liver enzymes are better than yesterday, bilirubin is down to 1.6. AST and ALT are 474 at 5:40 p.m. The wounds we have been monitoring. Her lactic acid is now normal, after I started bicarb yesterday. She appears to be stable. At this time, she is ambulating around the room. She is not suicidal. Multiple wounds look intact after being seen by Dr. Massey. She is not suicidal. Continue current treatment on her liver, finish 72 hours of Mucomyst and continue with the fluids. Monitor liver enzymes. Hemoglobin stable at 8.5, it was 89 yesterday. We will monitor that. PROGNOSIS: Guarded. MMODL / IJN: [id number] /
--- NOTE | 2023-05-22 15:27 | PN ---
PROGRESS NOTE DATE OF SERVICE: 05/17/2023 SUBJECTIVE: This 43-year-old white female had elevated lactic acid yesterday on 05/17/2023, we put her on bicarbonate. She is on normal saline, nicotine patch, Symbicort inhaler, anxiety medicines. Discussed case with the surgeon, who says she is much improved. Her liver enzymes are getting better. OBJECTIVE: VITAL SIGNS: Blood pressure 120s to 130s over 80s to 90s, O2 100% on room air, temp 98.4, pulse is 90s to 100s. CARDIOVASCULAR: S1, S2. LUNGS: Transmitted upper sounds. HEMATOLOGY: Negative for Homans. PLAN: Continue with current treatment for all her wounds per Dr. Massey who says she is better. Psychiatry consult appreciated. She has denies suicidal ideations. Medically, her liver enzymes are greatly improved every day to get better. Her bilirubin is down to 2.5. Liver enzymes are in the 2000s. She continues clinically to get better. She remains on Mucomyst, was elevated, placed on some bicarb. Continue current treatment. Liver enzymes are trending down. Continue to monitor till liver enzymes are normal. Mucomyst for 72 hours, discontinuing for possible Tylenol overdose versus shock liver. Poison Control was contacted. Psychiatry saw her also, her liver enzymes are improving. Continue current treatment. PROGNOSIS: Guarded. MMODL / IJN: [id number] /
--- NOTE | 2023-05-22 15:29 | PN ---
PROGRESS NOTE SUBJECTIVE: The patient continues to improve. Her liver enzymes are much better than yesterday. Denies any complaints. She did well. No abdominal pain. Liver enzymes are elevated, but decreasing every day. OBJECTIVE: VITAL SIGNS: Temp 98, pulse 95, respiratory rate 18 to 16, blood pressure a little high 160s over 100, O2 is 100%. LABORATORY DATA: Hemoglobin is 9.8, up from 8.5, which is great. ASSESSMENT: Lacerations, multiple sites. Liver enzymes keep coming down. She will be able to be discharged. She has finished Mucomyst. She is on some kind of pain control. She is on Symbicort for breathing, nicotine patches. Sodium bicarb was given for lactic acidosis, trazodone for insomnia. Her blood pressure remains high, we can give her a blood pressure medicine. Order something p.r.n. if her blood pressure goes over 160. Continue current treatment. Wait for liver enzymes to come down. MMODL / IJN: [id number] /
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
[2023-05-22 16:35] LABS: LD Isoenzymes 1 22 % (19-38); LD Isoenzymes 2 28 % (30-43); LD Isoenzymes 3 21 % (16-26); LD Isoenzymes 4 11 % (3-12); LD Isoenzymes 5 18 % (3-14); Lactacte Dehydrogenase(LD) ISO 211 U/L (100-200)
== END 2023-05-20 19:39 | disposition home or self-care (01) | DRG 317 ==
LOC: EC 09:47 → 4SSUR 11:20
PROVIDERS: ADMIT Surgery Plastic and Reconstructive Surgery; ATTEND Surgery Plastic and Reconstructive Surgery
PROC: 0KB20ZZ Excision of Right Neck Muscle, Open Approach (ICD-10-PCS; principal; 2023-05-15 10:32)
PROC: 0JQG0ZZ Repair Right Lower Arm Subcutaneous Tissue and Fascia, Open Approach (ICD-10-PCS; principal; 2023-05-15 10:32)
PROC: 0JQ40ZZ Repair Right Neck Subcutaneous Tissue and Fascia, Open Approach (ICD-10-PCS; principal; 2023-05-15 10:32)
PROC: 0HD0XZZ Extraction of Scalp Skin, External Approach (ICD-10-PCS; principal; 2023-05-15 10:32)
PROC: 0JQH0ZZ Repair Left Lower Arm Subcutaneous Tissue and Fascia, Open Approach (ICD-10-PCS; principal; 2023-05-15 10:32)
PROC: 0W360ZZ Control Bleeding in Neck, Open Approach (ICD-10-PCS; principal; 2023-05-15 10:32)
DX: S61.511A Laceration without foreign body of right wrist, initial encounter (principal); S11.83XA Puncture wound without foreign body of other specified part of neck, initial encounter; X99.8XXA Assault by other sharp object, initial encounter; Y99.0 Civilian activity done for income or pay; S51.812A Laceration without foreign body of left forearm, initial encounter; S51.811A Laceration without foreign body of right forearm, initial encounter; S11.81XA Laceration without foreign body of other specified part of neck, initial encounter; D62 Acute posthemorrhagic anemia; K72.00 Acute and subacute hepatic failure without coma; A05.9 Bacterial foodborne intoxication, unspecified; Y92.513 Shop (commercial) as the place of occurrence of the external cause; R41.0 Disorientation, unspecified; R74.01 Elevation of levels of liver transaminase levels; M79.7 Fibromyalgia; S61.512A Laceration without foreign body of left wrist, initial encounter; S40.011A Contusion of right shoulder, initial encounter; L29.9 Pruritus, unspecified; F41.9 Anxiety disorder, unspecified; F90.9 Attention-deficit hyperactivity disorder, unspecified type; J44.9 Chronic obstructive pulmonary disease, unspecified; F17.210 Nicotine dependence, cigarettes, uncomplicated; G89.29 Other chronic pain; E87.1 Hypo-osmolality and hyponatremia; T39.1X1A Poisoning by 4-Aminophenol derivatives, accidental (unintentional), initial encounter; Z88.1 Allergy status to other antibiotic agents; Z91.040 Latex allergy status; Z88.5 Allergy status to narcotic agent; Z79.899 Other long term (current) drug therapy
CPT/HCPCS: 36415; 70496; 70498; 71045; 71260; 72170; 74177; 76700; 80053; 80074; 80076; 80143; 80179; 80306; 80320; 81025; 82140; 82550; 83036; 83605; 83625; 83874; 84484; 84703; 85025; 85027; 85610; 85730; 86850; 86900; 86901; 86920; 90471; 90715; 93005; 94640; 94760; 96365; 96375; 99291